=== PATIENT | female | born 1965 | race Caucasian/White ===

== ENCOUNTER 2018-03-15 22:22 | Inpatient (IN) | payer SELFPAY, MEDICAID ==
[2018-03-15 23:22] LABS: ADD MAN DIFF? NO
[2018-03-15 23:25] LABS: BASO # 0.1 x10^3/uL (0.0-0.2); BASO % 1 % (0-3); EOS # 0.1 x10^3/uL (0.0-0.7); EOS % 1 % (0-3); HEMATOCRIT 42.6 % (36.0-47.0); HEMOGLOBIN 14.8 g/dL (12.0-15.5); LYMPH # 2.3 x10^3/uL (1.0-4.8); LYMPH % 27 % (24-48); MEAN CORPUSCULAR HEMOGLOBIN 34 pg (25-35); MEAN CORPUSCULAR HGB CONC 35 g/dL (31-37); MEAN CORPUSCULAR VOLUME 98 fL (79-100); MONO # 0.5 x10^3/uL (0.0-1.1); MONO % 6 % (0-9); NEUT # 5.4 x10^3uL (1.8-7.7); NEUT % 65 % (31-73); PLATELET COUNT 222 x10^3/uL (140-400); RED BLOOD COUNT 4.33 x10^6/uL (3.50-5.40); RED CELL DISTRIBUTION WIDTH 14.8 % (11.5-14.5); WHITE BLOOD COUNT 8.3 x10^3/uL (4.0-11.0)
[2018-03-15 23:35] LABS: ANION GAP 11 (6-14); BLOOD UREA NITROGEN 17 mg/dL (7-20); BUN/CREATININE RATIO 14 (6-20); CALCIUM 9.1 mg/dL (8.5-10.1); CARBON DIOXIDE 28 mmol/L (21-32); CHLORIDE 103 mmol/L (98-107); CREATININE 1.2 mg/dL (0.6-1.0); GFR 46.8; GLUCOSE 132 mg/dL (70-99); POTASSIUM 4.4 mmol/L (3.5-5.1); PROTHROMBIN TIME PATIENT 12.6 SEC (11.7-14.0); SODIUM 142 mmol/L (136-145)
[2018-03-15 23:37] LABS: ETHANOL < 10 mg/dL (0-10)
[2018-03-15 23:40] LABS: ACETAMIN < 2 mcg/ml (10-30); SALIC < 2.8 mg/dL (2.8-20.0); VAL ACID 108 mcg/mL (50-100)
[2018-03-15 23:41] LABS: ALBUMIN 3.5 g/dL (3.4-5.0); ALBUMIN/GLOBULIN RATIO 0.9 (1.0-1.7); ALK PHOS 84 U/L (46-116); ALT (SGPT) 38 U/L (14-59); AST (SGOT) 28 U/L (15-37); TOTAL BILIRUBIN 0.3 mg/dL (0.2-1.0); TOTAL PROTEIN 7.6 g/dL (6.4-8.2)
[2018-03-15 23:42] LABS: TROPONINI < 0.017 ng/mL (0.000-0.055)
[2018-03-15 23:43] LABS: LACTIC ACID 2.4 mmol/L (0.4-2.0)
[2018-03-15 23:46] LABS: NT-PRO BNP 47 pg/mL (0-124)
[2018-03-16] MEDS: IV NORMAL SALINE 1000ML BAG 1,000 ML IV ×4 (00:25→21:13)
[2018-03-16 00:42] LABS: BASE EXCESS ABG -1 mmol/L (-3-3); HCO3 ABG 24 mmol/L (21-28); PCO2 ABG 40 mmHg (35-46); PO2 ABG 65 mmHg (75-108); SAT O2 ABG 92 % (92-99)
[2018-03-16 00:48] LABS: BILIRUBIN,URINE NEGATIVE (NEG); CLARITY,URINE CLEAR; COLOR,URINE YELLOW; GLUCOSE,URINE NEGATIVE (NEG); NITRITE,URINE NEGATIVE (NEG); PROTEIN,URINE NEGATIVE (NEG-TRACE); UROBILINOGEN,URINE 0.2 mg/dL (0.2 mg/dL)
[2018-03-16 00:55] LABS: BARBITURATES NEG (NEG); BENZODIAZEPINES NEG (NEG); CANNABINOIDS NEG (NEG); COCAINE NEG (NEG); METHADONE NEG (NEG); OPIATES NEG (NEG); PHENCYCLIDINE NEG (NEG)
[2018-03-16 01:00] LABS: AMPHETAMINE/METHAMPHETAMINE NEG (NEG); ETHANOL, URINE NEG (NEG)
[2018-03-16 01:06] LABS: BACTERIA,URINE 0 /HPF (0-FEW); SQUAMOUS EPITHELIAL CELL,UR OCC /LPF; WBC,URINE OCC /HPF (0-4)
[2018-03-16] MEDS ORDERED: DIVALPROEX DELAYED RELEASE 500 MG TABLET.DR. PO (21:00)
[2018-03-17 06:41] LABS: HEMATOCRIT 39.9 % (36.0-47.0); HEMOGLOBIN 13.8 g/dL (12.0-15.5); MEAN CORPUSCULAR HEMOGLOBIN 34 pg (25-35); MEAN CORPUSCULAR HGB CONC 35 g/dL (31-37); MEAN CORPUSCULAR VOLUME 99 fL (79-100); PLATELET COUNT 210 x10^3/uL (140-400); RED BLOOD COUNT 4.02 x10^6/uL (3.50-5.40); WHITE BLOOD COUNT 7.3 x10^3/uL (4.0-11.0)
[2018-03-17 07:03] LABS: ALBUMIN 2.9 g/dL (3.4-5.0); ALBUMIN/GLOBULIN RATIO 0.9 (1.0-1.7); ALK PHOS 67 U/L (46-116); ALT (SGPT) 43 U/L (14-59); ANION GAP 8 (6-14); AST (SGOT) 32 U/L (15-37); BLOOD UREA NITROGEN 13 mg/dL (7-20); BUN/CREATININE RATIO 19 (6-20); CALCIUM 8.3 mg/dL (8.5-10.1); CARBON DIOXIDE 28 mmol/L (21-32); CHLORIDE 108 mmol/L (98-107); CREATININE 0.7 mg/dL (0.6-1.0); GFR 87.2; GLUCOSE 86 mg/dL (70-99); POTASSIUM 3.9 mmol/L (3.5-5.1); SODIUM 144 mmol/L (136-145); TOTAL BILIRUBIN 0.3 mg/dL (0.2-1.0); TOTAL PROTEIN 6.3 g/dL (6.4-8.2)
[2018-03-17 07:47] LABS: SEDIMENTATION RATE 5 (0-25)
[2018-03-17] MEDS: POLYETHYLENE GLYCOL 3350 17 GM PACKET. PO (08:14)
[2018-03-17] MEDS: DOCUSATE SODIUM 100 MG CAPSULE. PO (08:14)
[2018-03-17] MEDS ORDERED: OLANZapine 5 MG TABLET PO (09:00)
[2018-03-18] MEDS: POLYETHYLENE GLYCOL 3350 17 GM PACKET. PO (09:33)
[2018-03-18] MEDS: DOCUSATE SODIUM 100 MG CAPSULE. PO (09:34)
[2018-03-18 21:12] LABS: MRSA BY PCR Negative (Negative)
== END 2018-03-18 15:00 | disposition home or self-care (01) | DRG 885 ==
LOC: 6 SOUTH 03-16 01:18 → ER 22:22
DX: F25.9 Schizoaffective disorder, unspecified (principal); E66.9 Obesity, unspecified; R41.82 Altered mental status, unspecified; G47.30 Sleep apnea, unspecified; R09.02 Hypoxemia; K21.9 Gastro-esophageal reflux disease without esophagitis; I10 Essential (primary) hypertension; F31.9 Bipolar disorder, unspecified; Z88.8 Allergy status to other drugs, medicaments and biological substances; Z83.3 Family history of diabetes mellitus; Z68.38 Body mass index [BMI] 38.0-38.9, adult; Z82.49 Family history of ischemic heart disease and other diseases of the circulatory system
CPT/HCPCS: 36415; 36600; 51701; 70450; 71045; 80053; 80164; 80307; 80329; 81001; 82805; 83605; 83880; 84484; 85025; 85027; 85610; 85651; 87040; 87641; 93005; 96360; 96361; 97116-GP; 97162-GP; 97165-GO; 97530-GO; 97535-GO; 99285; 99285-25; G0480; J7030